=== PATIENT | male | born 1985 | race Caucasian/White ===

== ENCOUNTER 2020-06-24 14:44 | Outpatient (CLI) | payer OTHER ==
--- NOTE | 2020-06-25 16:15 | Consultation ---
DATE OF CONSULTATION: 06/24/2020 GASTROENTEROLOGY CONSULTATION CONSULTING PHYSICIAN: Toni Rodriguez MD. CHIEF COMPLAINT: Chronic GERD. HISTORY OF PRESENT ILLNESS: This is a 34-year-old male with complaint of GERD for many, many years. He has been taking different medication including omeprazole, Protonix. He is concerned about Russ's esophagus. PAST MEDICAL HISTORY: Chronic GERD. PAST SURGICAL HISTORY: None. MEDICATIONS: Omeprazole and Protonix. FAMILY HISTORY: No family history of GI malignancies. SOCIAL HISTORY: The patient denies any tobacco, alcohol, or drug abuse. ALLERGIES: No known drug allergies. REVIEW OF SYSTEMS: A 10-point review of systems was performed and pertinent positives in HPI. PHYSICAL EXAMINATION: VITAL SIGNS: Stable. The patient is afebrile. HEENT: Normocephalic and atraumatic. Sclerae anicteric. NECK: Supple. No evidence of obvious lymphadenopathy. CARDIOVASCULAR: Regular rate and rhythm. Plus S1 and S2. LUNGS: Clear to auscultation bilaterally. ABDOMEN: Bowel sounds positive. Soft and nontender. No rebound. No guarding. No peritoneal sign. EXTREMITIES: No cyanosis, no clubbing, no edema. ASSESSMENT/PLAN: This is a 34-year-old male with chronic GERD. At this time, the patient is not very interested in having an endoscopy done. Our plan we are going to send the stool for H. pylori. Start the patient on PPI, add baclofen at bedtime. The patient to come back in two months and if not improvement, was concerned, consider doing EGD if he agrees. Meanwhile, the patient was educated about the GERD diet. Toni Rodriguez M.D. DR: PATRICIA JOB#: [id number] CC:
== END 2020-06-24 16:44 | disposition home or self-care (01) ==
LOC: PAN 14:44
DX: K21.9 Gastro-esophageal reflux disease without esophagitis (principal); Z79.899 Other long term (current) drug therapy
CPT/HCPCS: G0463

== ENCOUNTER 2020-08-26 13:00 | Outpatient (CLI) | payer OTHER ==
[2020-08-26 14:16] VITALS: BP 139/66
[2020-08-26] MEDS ORDERED: OMEPRAZOLE40 M1 ORAL (14:18)
--- NOTE | 2020-08-29 14:42 | General Progress Note ---
Subjective ROS Limited/Unobtainable: Yes Allergies: Coded Allergies: No Known Allergies (Unverified , 06/25/20) Objective General Appearance: alert EENT: normal ENT inspection Neck: supple Cardiovascular: normal rate Respiratory/Chest: lungs clear Abdomen: normal bowel sounds, non tender, soft Extremities: non-tender Assessment/Plan Assessment/Plan: GERD on ppi refusing EGD dillan ppi Toni Rodriguez MD Aug 29, 2020 14:41
== END 2020-08-26 15:00 | disposition home or self-care (01) ==
LOC: PAN 13:00
DX: K21.9 Gastro-esophageal reflux disease without esophagitis (principal)
CPT/HCPCS: 99212